=== PATIENT | female | born 1970 | race Caucasian/White ===

== ENCOUNTER 2021-08-15 18:09 | Emergency (ER) | payer OTHER ==
[~2021-08-15] VITALS: Ht 165.1 cm; Wt 115.0 kg
== END 2021-08-15 19:18 | disposition home or self-care (01) ==
LOC: FSED 18:45
DX: I83.813 Varicose veins of bilateral lower extremities with pain (principal); Z98.84 Bariatric surgery status
CPT/HCPCS: 99282